=== PATIENT | female | born 1995 | race Caucasian/White ===

== ENCOUNTER 2025-04-08 17:56 | Emergency (ER) | payer OTHER, MEDICAID, SELFPAY ==
[2025-04-08 18:01] VITALS: BP 112/62; PULSE 85; RESP 18; TEMP 36.7; O2SAT 100; BMI 32.4
--- NOTE | 2025-04-08 18:05 | ED.DENTAL ---
HPI - Dental/Oral General Chief complaint: Dental/Oral Stated complaint: Dental Pain Time Seen by Provider: 04/08/25 20:32 Source: patient Mode of arrival: ambulatory Limitations: no limitations History of Present Illness ED Provider: Jones ANDERSEN HPI Narrative: The patient is a 29-year-old female presenting to the ED for evaluation of dental pain in the left upper mouth in the area of tooth 13. The patient reports this has been occurring intermittently for a number of weeks but today became constant and more severe after eating. The patient attempted taking ibuprofen 400 mg at approximately noon with moderate effect. The patient reports the adjacent tooth previously had a cap placed a few years ago and patient was supposed to follow up with dentist for a filling of that adjacent tooth, reports she did not follow up due to COVID restrictions. Patient denies associated fever/chills, nausea, vomiting, or other systemic complaint. Related Data Previous Rx's ?Medication ?Instructions ?Recorded amoxicillin 875 mg-potassium 1 tab PO BID #14 tabs 04/08/25 clavulanate 125 mg tablet Allergies Allergy/AdvReac Type Severity Reaction Status Date / Time No Known Allergies Allergy Verified 04/08/25 18:03 Review of Systems Review of Systems: Yes all other systems are reviewed and are negative PMFSH Social History Social History Smoked in Last 30 Days: No Use of substances other than those prescribed or required for medical reasons: No Advance Directives: No Advance Directives Information Provided: No Do you have a plan to hurt others: No Plan Patient : No Physical Exam Vital Signs: Vital Signs: Last Vital Signs Temp 98.1 F 04/08/25 18:01 Pulse 85 04/08/25 18:01 Resp 18 04/08/25 18:01 BP 112/62 04/08/25 18:01 Pulse Ox 100 04/08/25 18:01 BMI result Body Mass Index 32.4 CONSTITUTIONAL: The patient appears non-toxic, well nourished and in no acute distress. Vital signs as documented. HEAD: Atraumatic, normocephalic. EYES: EOMs grossly intact, pupils equal, conjunctiva clear, no exudate. ENT: Nares patent, no discharge. Airway patent, no audible stridor, visible mucosa is pink and moist without noted lesions. No drainable abscess identified. NECK: trachea is midline, no obvious masses or gross abnormalities. CHEST: Symmetric movement, normal appearance. LUNGS: Non-labored work of breathing. CARDIAC: No evidence of hypoperfusion. ABDOMEN: Nondistended, no obvious injury. : Deferred. EXTREMITIES: Moves all extremities spontaneously without reported pain. No obvious injury or deformity noted. NEURO: Alert and oriented x3, CN II-XII appear grossly intact. Cerebellar Functioning grossly intact. Speech clear and appropriate. SKIN: Warm, dry, color appropriate. No rashes or lesions noted. Course Course Course Narrative: This is a Rapid Medical Examination (RME) performed by Juancarlos Alonzo PA-C in triage. Full HPI, ROS, assessment and treatment plan per primary provider in the Main ED. Hx: 29 yo F here for eval of dental pain to left upper tooth - so severe she could not get off of the floor, had to leave work. pain shoots into head/jaw. had a crown placed to the adjacent tooth - is concerned there is a nerve exposed. no broken or cracked tooth. took otc meds w/o relief. interested in nerve block. unable to get in w/ dentist today. Plan: further eval in back Medical Decision Making Medical Decision Making MDM Narrative: 8:51 PM 04/08/2025 (Juancarlos ANDERSEN): The patient is a 29-year-old female presenting to the ED for evaluation of dental pain in the left upper mouth in the area of tooth 13. The patient reports this has been occurring intermittently for a number of weeks but today became constant and more severe after eating. The patient attempted taking ibuprofen 400 mg at approximately noon with moderate effect. The patient reports the adjacent tooth previously had a cap placed a few years ago and patient was supposed to follow up with dentist for a filling of that adjacent tooth, reports she did not follow up due to COVID restrictions. Patient denies associated fever/chills, nausea, vomiting, or other systemic complaint. The patient reports she is planning to call her dentist tomorrow for definitive care. The patient's exam shows no drainable abscess, no fracture. The patient is otherwise well-appearing, nontoxic. Patient was treated with a periapical block with good effect. The patient's symptoms will be treated with Tylenol as she declined ibuprofen since she has not recently eaten. Additionally the patient will be treated with Augmentin and instructed to follow up with her dentist as planned. Admission/Observation Consideration of admission/observation: Escalation of care including admission/observation considered External Record Review External record reviewed: Outpatient record Procedures Nerve Block Nerve Block 1: Local Anesthetic: bupivacaine 0.25% Amount of anesthesia used (mL): 1 Side: left Intraoral Nerve Block: supraperiosteal Procedure Successful: Yes Patient Tolerated Procedure: well Complications: none Discharge Plan Discharge Clinical Impression: Toothache, Dental caries Patient Disposition: Home, Self-Care Instructions: Toothache (ED) Additional Instructions: Thank you for choosing [facility]'s Emergency Department for your care today. You were seen today for pain likely from a dental cavity. You were treated with a local nerve block, Tylenol, and an antibiotic called Augmentin. At this time there is no indication for admission to the hospital or continued ED observation, and it is safe to discharge you home. You should take alternating (staggered) doses of ibuprofen 600mg and Tylenol 1000mg every 4 hours as needed for any additional pain. Please continue taking Augmentin as prescribed until it is finished. It is extremely important that you follow up with the your dentist for definitive care of the cause of your symptoms. Please also follow up with your primary care physician for re-evaluation, additional management of your symptoms, and continued preventative care. If you do not have a primary care physician, please call the [facility] at [phone] to establish a new primary care physician. While waiting to establish your new primary care physician, you can call our [facility] at [phone] for non-emergency needs. Please return to the emergency department if you develop a severe or sudden change in your symptoms, a fever over 100.4 that does not improve with Tylenol or Ibuprofen, recurrent vomiting, or any other new or worsening symptoms or concerns. Prescriptions: New amoxicillin-pot clavulanate 875-125 mg tablet 1 tab PO BID Qty: 14 0RF Stand Alone Forms: Work/School Release Print Language: French
--- OUTSIDE RECORDS SUMMARY | 2025-04-08 18:35 | XMS_ITS | Clinical Summary ---
Author Organization [facility] Address [address] [place] [address] Phone Care Team Providers Care Pest Control Chemical Technician Name Role Phone Pcp, Unknown Primary Care Provider Unavailabl e Medications levonorgestrel-e thinyl estradiol (SRONYX) 0.1-0.02 mg per tablet 1 tablet Orally Daily for Three Weeks, 1 Week off Active Encounters Date Type Department Care Team Description 02/19/2025 [facility] RISK SCORES SYSTEM GENERATED External System Generated Encounter [address] [place] [address] Unknown, Unknown, from Last 3 Months Family History Medical History Relation Comments Cancer Paternal Grandfather 2 Relation Status Comments Paternal Grandfather 1 Paternal Grandfather 2 Social History Tobacco Use Types Packs/Day Years Used Date Smoking Tobacco: Never Assessed Education Answer Date Recorded Are you interested in more education? Not on carmella e 09/18/2022 Are you concerned about learning? Not on file 09/18/2022 No 09/18/2022 No 09/18/2022 Digital Access Answer Date Recorded No 10/19/2022 No 10/19/2022 Reliable internet access at home? Not on file 10/19/2022 Device with a working camera? Not on file Comments Unknown Sex and Gender Information Value Date Recorded Sex Assigned at Not on file Legal Sex Female 8:55 PM EDT Gender Identity Not on file Sexual Orientation Not on file Last Filed Vital Signs Vital Sign Reading Time Taken Comments Blood Pressure 110/60 03/11/2016 1:34 AM EDT Pulse 72 03/11/2016 1:34 AM EDT Temperature - - Respiratory Rate - - Oxygen Saturation - - Inhaled Oxygen Concentration - - Weight 80.4 kg (177 lb 3.2 oz) 03/11/2016 1:34 A M EDT Height 165.1 cm (5' 5 ) 03/11/2016 1:34 AM EDT Body Mass Index 29.49 03/11/2016 1:34 AM EDT Plan of Treatment Health Maintenance Due Date Last Done Comments Adult Td,Tdap Booster 1993 DEPRESSION SCREENING 2005 SMOKING Hx and SMOKELESS TOB ACCO SCREENING 2006 HEPATITIS C SCREENING 12/23/2011 HIV ONE-TIME SCREENING (18-6 5 YEARS) 12/23/2011 PAP SMEAR 2014 INFLUENZA VACCINE (#1) 2024 COVID-19 VACCINE ( - 2024-2 6 season) 2025 HEPATITIS A VACCINES Aged Out No long er eligible based on patient's age to complete this topic HIB VACCINES Aged Out No longer eligi ble based on patient's age to complete this topic IPV VACCINES Aged Out No longer eligi ble based on patient's age to complete this topic MENINGOCOCCAL VACCINES (ACWY) Aged Out No longer eligible based on patient's age to complete this topic MENINGOCOCCAL VACCINES (B) Aged Out N o longer eligible based on patient's age to complete this topic PNEUMOCOCCAL VACCINES (0-49 years) Aged Out No longer eligible based on patient's age to complete this topic Medical Devices Not on file Care Teams Pest Control Chemical Technician Relationship Specialty Start Date End Date Pcp, Unknown PCP - General 12/19/21 Additional Source Comments The information contained in this document represents components of the legal health record. It is not the complete legal health record.[facility]
[2025-04-08] MEDS: BUPivacaine MPF 0.25 % 10 ML VIAL 5 ML INFILTRATI (20:53)
[2025-04-08 20:59] VITALS: BP 108/58; PULSE 78; RESP 17; TEMP 36.4; O2SAT 98
[2025-04-08 21:08] VITALS: BP 108/58; PULSE 78; RESP 17; TEMP 36.4; O2SAT 98
== END 2025-04-08 21:09 | disposition home or self-care (01) ==
PROVIDERS: Emergency Provider Student in an Organized Health Care Education/Training Program
DX: K08.89 Other specified disorders of teeth and supporting structures (principal); K02.9 Dental caries, unspecified
CPT/HCPCS: 96374; 99284; J0665